=== PATIENT | female | born 1945 | race Caucasian/White ===

== ENCOUNTER 2017-05-14 19:14 | Observation (INO) | payer OTHER ==
--- NOTE | 2017-05-14 19:30 | EDPHY ---
H & P Stated Complaint: abd pain HPI/ROS: CHIEF COMPLAINT: Abdominal pain HISTORY OF PRESENT ILLNESS: The patient is a 71-year-old female presenting with diffuse abdominal pain that started 2 days ago. The patient was on a 10 day vegetable juice fast. She stopped this on and has since had various things to eat like potato chips, ice cream, and weiner. She describes a pressure sensation in her mid-abdomen. The pain remains constant. She was able to have a bowel movement, denies constipation or diarrhea. She denies dysuria or fever. 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 REVIEW OF SYSTEMS: A ten point review of systems was performed and is negative with the exception of the items mentioned in the HPI. Past medical history: Denies. Past surgical history: Appendectomy, [place] teeth. Family history: Noncontributory. Social history: Nonsmoker. No alcohol. General Appearance: Alert. Vital signs reviewed. Blood pressure 173/62. Eyes: Pupils equal and round, no conjunctival injection, no discharge. Anicteric. ENT, Mouth: Mucous membranes are moist, no oropharyngeal erythema or edema. Neck: No lymphadenopathy, supple. Respiratory: Lungs are clear to auscultation; no wheezes, rales, or rhonchi. Cardiovascular: Regular rate and rhythm; no murmur, rub, or gallop. Gastrointestinal: Abdomen is soft, RUQ tenderness, no masses or organomegaly, bowel sounds present, but diminished. Skin: Warm and dry, no rashes on exposed skin, normal color. Back: Nontender to palpation over the thoracolumbar spine. No CVAT. Extremities: No lower extremity edema, no calf tenderness or swelling. Neurological: Alert and oriented. Moving all four extremities easily and equally. Psychiatric: Normal affect. Source: Patient - Personal History Current Tetanus/Diphtheria Vaccine: Yes Current Tetanus Diphtheria and Acellular Pertussis (TDAP): Yes - Medical/Surgical History Hx Asthma: No Hx Chronic Respiratory Disease: No Hx Diabetes: No Hx Cardiac Disease: No Hx Renal Disease: No Hx Cirrhosis: No Hx Alcoholism: No Hx HIV/AIDS: No Hx Splenectomy or Spleen Trauma: No Other PMH: Appendectomy, wisdom teeth - Social History Smoking Status: Never smoked Constitutional: Initial Vital Signs Temperature (C) 36.7 C 05/14/17 19:17 Heart Rate 74 05/14/17 19:17 Respiratory Rate 16 05/14/17 19:17 Blood Pressure 173/62 H 05/14/17 19:17 O2 Sat (%) 97 05/14/17 19:17 O2 Delivery Mode Room Air O2 (L/minute) 2 Allergies/Adverse Reactions: No Known Allergies Allergy (Unverified 05/14/17 19:17) Home Medications: Medication Instructions Recorded Herbals/Supplements -Info Only 1 ea PO DAILY 05/15/17 oxyCODONE/APAP 5/325 [Percocet 1 - 2 tab PO Q4HRS PRN #20 tab 05/15/17 5/325 (*)] Medical Decision Making - Diagnostics Imaging: Discussed imaging studies w/ clerk general Radiologist ED Course/Re-evaluation: The patient presents with diffuse abdominal pain that she describes as a pressure. This has been constant for the past 2 days. On examination the patient has right upper abdominal tenderness and diminished bowel sounds. She is afebrile. I ordered a urinalysis and lab work including liver enzymes, lipase, and BMP. An IV was established, the patient received IV Fentanyl and Zofran for pain and nausea. The patient has an elevated WBC 14. ALT 62. Laboratories otherwise normal. Urinalysis is negative for infection. I ordered abdominal ultrasound. Abdominal US reveals large calculus lodged at the gallbladder neck, associated with tumefactive sludge and gallbladder wall thickening, suggestive of chronic gallbladder obstruction and cholecystitis. Please see radiology report. Abdominal exam remains unchanged, with right upper quadrant tenderness, no guarding. She has been hypertensive in the emergency department. This will be followed during her admission. 9:25 p.m.: I consulted Dr. Marcos, General Surgery, who will admit the patient and evaluate her in the morning for consideration of cholecystectomy. I discussed findings with the patient. She agrees with the plan for admission. Differential Diagnosis: I considered a differential diagnosis that includes but is not limited to acute or chronic cholecystitis, pancreatitis, gastritis, pyelonephritis, urinary tract infection, bowel obstruction. - Data Points Laboratory Results: Laboratory Results 05/14/17 19:40 05/14/17 19:40 Medications Given: Discontinued Medications Bupivacaine HCl (Sensorcaine 0.5% Vial) Confirm Administered Dose 30 ml .ROUTE .STK-MED ONE Stop: 05/15/17 08:14 Last Admin: 05/15/17 09:04 Dose: 30 ml Fentanyl (Sublimaze) 50 mcg IVP EDNOW ONE Stop: 05/14/17 19:51 Last Admin: 05/14/17 19:59 Dose: 50 mcg Fentanyl (Sublimaze) 25 - 100 mcg IVP Q5M PRN PRN Reason: PACU, IMMEDIATE Pain control Stop: 05/15/17 10:01 Last Admin: 05/15/17 10:48 Dose: 25 mcg Hydromorphone HCl (Dilaudid) 1 mg IVP EDNOW ONE Stop: 05/14/17 21:03 Last Admin: 05/14/17 21:04 Dose: 1 mg Sodium Chloride (Ns) 1,000 mls @ 0 mls/hr IV ONCE ONE; Wide Open PRN Reason: Protocol Stop: 05/14/17 19:47 Last Admin: 05/14/17 19:55 Dose: 1,000 mls Potassium Chloride/Dextrose/Sod Cl (D5w 1/2 Ns W/ 20 Kcl/L) 1,000 mls @ 100 mls /hr IV CONT AI Stop: 11/10/17 21:44 Last Admin: 05/15/17 08:03 Dose: 1,000 mls Cefazolin Sodium/Dextrose (Ancef 2 Gm (Premix)) 100 mls @ 200 mls/hr IV ONCALL ONE PRN Reason: Protocol Stop: 05/15/17 08:25 Last Admin: 05/15/17 08:40 Dose: 100 mls Morphine Sulfate (Morphine) 2 mg IVP Q1HR PRN PRN Reason: Pain, Severe Unable to Take PO Stop: 05/24/17 21:34 Last Admin: 05/15/17 11:11 Dose: 2 mg Ondansetron HCl (Zofran) 4 mg IVP EDNOW ONE Stop: 05/14/17 19:54 Last Admin: 05/14/17 20:00 Dose: 4 mg Ondansetron HCl (Zofran) 4 mg IVP Q4HRS PRN PRN Reason: Nausea/Vomiting, Can't Take PO Stop: 11/10/17 21:34 Last Admin: 05/15/17 01:56 Dose: 4 mg Oxycodone/Acetaminophen (Percocet 5/325) 1 - 2 tab PO Q4HRS PRN PRN Reason: Pain, Severe Able to Take PO Stop: 05/25/17 09:52 Last Admin: 05/15/17 13:48 Dose: 1 tab Departure - Departure Disposition: [facility] Inpatient Acute Clinical Impression: Gallstones with obstruction of gallbladder Qualifiers: Cholecystitis presence: with cholecystitis Cholecystitis acuity: chronic Qualified Code(s): K80.11 - 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 I, Dr. Delmi Chatman, personally performed the history, physical exam, and medical decision- making; and confirmed the accuracy of the information in the transcribed note.
[2017-05-14] MEDS ORDERED: NS 1,000 ML IV ONE (19:46)
[2017-05-14 19:50] LABS: % IMMATURE GRANULYOCYTES 0.6 % (0.0-1.1); ABSOLUTE IMMATURE GRANULOCYTES 0.08 10^3/uL (0.00-0.10); ADD DIFF? NO; ADD MORPH? NO; ADD SCAN? NO; ATYPICAL LYMPHOCYTE FLAG 0 (0-99); FRAGMENT RBC FLAG 0 (0-99); HEMATOCRIT 45.4 % (38.0-47.0); HEMOGLOBIN 15.6 g/dL (12.6-16.3); LEFT SHIFT FLG 0 (0-99); LIPEMIA HEMOLYSIS FLAG 90 (0-99); MEAN CELL HEMOGLOBIN 29.3 pg (27.9-34.1); MEAN CELL HEMOGLOBIN CONCENTR. 34.4 g/dL (32.4-36.7); MEAN CELL VOLUME 85.2 fL (81.5-99.8); MEAN PLATELET VOLUME 9.5 fL (8.7-11.7); PLATELET CLUMPS FLAG 0 (0-99); PLATELET COUNT 378 10^3/uL (150-400); RED BLOOD CELL COUNT 5.33 10^6/uL (4.18-5.33); RED CELL DISTRIBUTION WIDTH 12.4 % (11.5-15.2)
[2017-05-14] MEDS ORDERED: fentaNYL 100 MCG/2 ML INJ IVP ONE (19:50)
[2017-05-14 19:52] LABS: COLOR YELLOW; LEUKOCYTE ESTERASE,URINE NEGATIVE (NEGATIVE); NITRITE,URINE NEGATIVE (NEGATIVE)
[2017-05-14 19:53] LABS: MUCUS TRACE /lpf (NONE-1+)
[2017-05-14] MEDS ORDERED: ONDANSETRON 4 MG/2 ML VIAL IVP ONE (19:53)
[2017-05-14 19:58] LABS: ALANINE AMINOTRANSFERASE 62 IU/L (9-52); ALBUMIN 4.2 g/dL (3.5-5.0); ALKALINE PHOSPHATASE 120 IU/L (38-126); ANION GAP 14 mEq/L (8-16); ASPARTATE AMINOTRANSFERASE 41 IU/L (14-46); BILIRUBIN,TOTAL 1.2 mg/dL (0.1-1.4); BILIRUBIN-CONJUGATED 0.3 mg/dL (0.0-0.5); BILIRUBIN-UNCONJUGATED 0.9 mg/dL (0.0-1.1); CALCIUM 9.7 mg/dL (8.5-10.4); CARBON DIOXIDE 20 mEq/l (22-31); CHLORIDE 97 mEq/L (97-110); CREATININE 0.8 mg/dL (0.6-1.0); GLOMERULAR FILTRATION RATE > 60; GLUCOSE 115 mg/dL (70-100); POTASSIUM 3.7 mEq/L (3.5-5.2); SODIUM 131 mEq/L (134-144); TOTAL PROTEIN 7.2 g/dL (6.3-8.2)
[2017-05-14] MEDS ORDERED: HYDROmorphONE/DILAUDID 1 MG/ML INJ ONE (21:01)
[2017-05-14] MEDS ORDERED: HYDROmorphONE/DILAUDID 1 MG/ML INJ IVP ONE (21:02)
[2017-05-14] MEDS ORDERED: ONDANSETRON 4 MG/2 ML VIAL IVP PRN (21:35)
[2017-05-14] MEDS ORDERED: ACETAMINOPHEN 325 MG TAB PO PRN (21:36)
[2017-05-14] MEDS: D5W 1/2 NS W/ 20 KCl/L 1,000 ML IV SCH (23:01)
[2017-05-15 05:25] LABS: % IMMATURE GRANULYOCYTES 0.6 % (0.0-1.1); ABSOLUTE IMMATURE GRANULOCYTES 0.07 10^3/uL (0.00-0.10); ADD DIFF? NO; ADD MORPH? NO; ADD SCAN? NO; ATYPICAL LYMPHOCYTE FLAG 0 (0-99); FRAGMENT RBC FLAG 0 (0-99); HEMATOCRIT 44.1 % (38.0-47.0); LEFT SHIFT FLG 0 (0-99); LIPEMIA HEMOLYSIS FLAG 90 (0-99); MEAN CELL HEMOGLOBIN 29.5 pg (27.9-34.1); MEAN CELL VOLUME 86.8 fL (81.5-99.8); MEAN PLATELET VOLUME 9.7 fL (8.7-11.7); PLATELET CLUMPS FLAG 0 (0-99); PLATELET COUNT 301 10^3/uL (150-400); RED BLOOD CELL COUNT 5.08 10^6/uL (4.18-5.33); RED CELL DISTRIBUTION WIDTH 12.5 % (11.5-15.2)
[2017-05-15 05:51] LABS: CARBON DIOXIDE 24 mEq/l (22-31); CHLORIDE 97 mEq/L (97-110); POTASSIUM 4.4 mEq/L (3.5-5.2); SODIUM 131 mEq/L (134-144)
[2017-05-15 05:52] LABS: ALANINE AMINOTRANSFERASE 139 IU/L (9-52); ALBUMIN 3.4 g/dL (3.5-5.0); ALKALINE PHOSPHATASE 129 IU/L (38-126); ANION GAP 10 mEq/L (8-16); ASPARTATE AMINOTRANSFERASE 230 IU/L (14-46); BILIRUBIN,TOTAL 1.4 mg/dL (0.1-1.4); CALCIUM 8.9 mg/dL (8.5-10.4); CREATININE 0.6 mg/dL (0.6-1.0); GLOMERULAR FILTRATION RATE > 60; GLUCOSE 149 mg/dL (70-100); TOTAL PROTEIN 6.3 g/dL (6.3-8.2)
[2017-05-15] MEDS ORDERED: ceFAZolin 2 GM/DEXTROSE 100 ML IV ONE (07:56)
[2017-05-15] MEDS: D5W 1/2 NS W/ 20 KCl/L 1,000 ML IV SCH (08:03)
[2017-05-15] MEDS ORDERED: BUPIVACAINE 0.5% 30 ML SDV ONE (08:13)
[2017-05-15] MEDS ORDERED: CEFAZOLIN 2 GM/DEXTROSE/100 ML BAG IV ONE (08:19)
--- NOTE | 2017-05-15 08:20 | GHP ---
[f rep st] HISTORY AND PHYSICAL DATE OF ADMISSION: 05/14/2017 CHIEF COMPLAINT: Cholelithiasis. HISTORY OF PRESENT ILLNESS: The patient is a 71-year-old woman who was on a juicing cleanse. She st opped this 10 days into the fast and ate things such as potato chips and ice creams and weiner. The p ain escalated. The pain started 2 days ago. She describes it as a pressure and sharp pain her right upper quadrant. The pain is constant. She has not seen a primary care physician, over 4 years. Tina villareal is not having nausea or emesis. She is not having changes in her bowel movement. PAST MEDICAL HISTORY: None. PAST SURGICAL HISTORY: [place] teeth extraction, appendectomy. FAMILY HISTORY: Noncontributory. SOCIAL HISTORY: She does not use tobacco or alcohol products. 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 PHYSICAL EXAMINATION: GENERAL: Pleasant, well-nourished, well-groomed woman. HEENT: Normocephalic . No gross hearing deficits. Mucous membranes moist. Pupils equal and round. No scleral icterus. LUNGS: Clear to auscultation bilaterally. No increased work of breathing. CARDIAC: Regular rate. No peripheral edema. ABDOMEN: She has well-healed laparoscopic incisions consistent with her prev ious appendectomy. ABDOMEN: Soft. She is tender in the right quadrant below the costal margin. SK IN: Warm and dry. No obvious rashes. MUSCULOSKELETAL: Normal nails. Moves all extremities easily . PSYCH: Normal mood and affect. NEURO: Grossly intact. LAB RESULTS: I personally reviewed the results of her ultrasound that shows a large gallstone and so me gallbladder wall thickening as well as her laboratory work. Her white count is down today. Her L FTs are up. IMPRESSION AND PLAN: A 71-year-old woman with cholelithiasis. I will take her to the operating room for a laparoscopic cholecystectomy. The risks and benefits, including, but not limited to, stroke, heart attack, , blood clots, infection, bleeding, damage to common bile duct, need for additiona l procedures, were discussed. She will receive Ancef collection team lead to the operating room. She had her que stions answered to her satisfaction and signed the informed consent. /[id number]/MODL
[2017-05-15] MEDS ORDERED: PROPOFOL 200 MG/20 ML VIAL ONE (08:38)
[2017-05-15] MEDS ORDERED: fentaNYL 100 MCG/2 ML INJ ONE ×2 (08:38→10:46)
[2017-05-15] MEDS ORDERED: LIDOCAINE 2% 5 ML SDV ONE (08:38)
[2017-05-15] MEDS ORDERED: PHENYLEPHRINE HCL 100 MCG/ML SYR ONE (08:47)
[2017-05-15] MEDS ORDERED: epHEDrine SULFATE 10 MG/ML SYR ONE (08:50)
[2017-05-15] MEDS ORDERED: fentaNYL 100 MCG/2 ML INJ IVP PRN (09:01)
[2017-05-15] MEDS ORDERED: NALOXONE HCL 0.4 MG/ML INJ IVP PRN (09:01)
[2017-05-15] MEDS ORDERED: HYDROmorphONE/DILAUDID 1 MG/ML INJ IVP PRN (09:01)
[2017-05-15] MEDS ORDERED: ALBUTEROL 3 ML DEYVIAL IH PRN (09:01)
[2017-05-15] MEDS ORDERED: ONDANSETRON 4 MG/2 ML VIAL IVP PRN (09:01)
--- NOTE | 2017-05-15 09:02 | PDANEPAE ---
ANE History of Present Illness Leanna Nagel MADELINE Past Medical History - Pulmonary History Hx Oxygen in Use at Home: No Hx Sleep Apnea: No Sleep Apnea Screening Result - Last Documented: Negative - Endocrine History Hx Diabetes: No - Chronic Pain History Chronic Pain: No ANE Review of Systems Review of Systems: ANE Patient History - Allergies Allergies/Adverse Reactions: No Known Allergies Allergy (Unverified 05/14/17 19:17) - Home Medications Home Medications: Herbals/Supplements -Info Only 1 ea PO DAILY 05/15/17 [Last Taken Unknown] - NPO status NPO Since - Liquids (Date): 05/14/17 NPO Since - Liquids (Time): 00:00 NPO Since - Solids (Date): 05/14/17 NPO Since - Solids (Time): 22:00 - Smoking Hx Smoking Status: Never smoked ANE Labs/Vital Signs - Labs Result Diagrams: 05/15/17 04:45 05/15/17 04:45 - Vital Signs Blood Pressure: 150/72 Heart Rate: 64 Respiratory Rate: 16 O2 Sat (%): 97 Height: 162.56 cm Weight: 61.235 kg ANE Physical Exam - Airway Neck exam: FROM Mallampati Score: Class 2 Mouth exam: normal dental/mouth exam - Pulmonary Pulmonary: clear to auscultation - Cardiovascular Cardiovascular: regular rate and rhythym - ASA Status ASA Status: I, E ANE Anesthesia Plan Anesthesia Plan: general endotracheal anesthesia
[2017-05-15] MEDS ORDERED: ONDANSETRON 4 MG/2 ML VIAL ONE (09:39)
[2017-05-15] MEDS ORDERED: DEXAMETHASONE 4 MG/ML VIAL ONE (09:39)
[2017-05-15] MEDS ORDERED: RANITIDINE 50 MG/2 ML VIAL ONE (09:39)
[2017-05-15] MEDS ORDERED: SUGAMMADEX SODIUM 200 MG/2 ML VIAL IVP ONE (09:44)
[2017-05-15] MEDS ORDERED: OXYCODONE/APAP 5/325 TAB PO PRN (09:53)
--- NOTE | 2017-05-15 09:55 | POSTOPPROG ---
Post Op Note Date of Operation: 05/15/17 Surgeon: Zahraa Marcos Anesthesiologist: damaso Anesthesia: GET(General Endotracheal) Pre-op Diagnosis: acute calculous harvey Post-op Diagnosis: same Indication: 71 yo with acute calculous harvey Procedure: lap harvey Findings: enlarged gb with large stone Inf/Abcess present in the surg proc area at time of surgery?: No EBL: Minimal Specimen(s): gb
--- NOTE | 2017-05-15 10:06 | POSTANESTH ---
Post Anesthetic Evaluation Cardiovascular Status: Normal, Stable Respiratory Status: Normal, Stable Level of Consciousness/Mental Status: Can Participate in Eval, Mildly Sleepy, Arousable Pain Control: Adequate, Prn Tx Ordered Nausea/Vomiting Control: Adequate, Prn Tx Ordered Complications Possibly Related to Anesthesia: None Noted
--- NOTE | 2017-05-15 10:20 | GOP ---
[f rep st] OPERATIVE REPORT DATE OF OPERATION: 05/15/2017 SURGEON: Zahraa Marcos MD ANESTHESIA: Krystian Schulz, DO/General. PREOPERATIVE DIAGNOSIS: Acute calculous cholecystitis. POSTOPERATIVE DIAGNOSIS: Acute calculous cholecystitis. PROCEDURE PERFORMED: Laparoscopic cholecystectomy. FINDINGS: Very enlarged, tense gallbladder. SPECIMENS: Gallbladder. ESTIMATED BLOOD LOSS: 15 cc. INDICATIONS: The patient is a 71-year-old woman, who developed abdominal pain. Her ultrasound showe d an enlarged gallbladder with a large stone lodged at the neck of the gallbladder. DESCRIPTION OF PROCEDURE: The patient was brought into the operating room, placed supine on the tabl e, and general anesthesia was administered. Her abdomen was prepped and draped in the usual sterile fashion. I infiltrated all sites with 0.5% Marcaine prior to making incisions. I elevated the umbil icus, I inserted the Veress needle. It passed the hanging drop test. Her abdomen insufflated easily to a pressure of 15 mmHg. Under direct vision, I placed a 10 mm subxiphoid trocar and two 5 mm troc ars along the right costal margin. I was unable to lift the gallbladder cephalad because it was so t ense. I then inserted a needle to aspirate the bile, it was extremely thickened and very difficult t o aspirate. Once the gallbladder was able to be lifted cephalad, I then could retract it laterally t o expose the triangle of Calot. Using suction dissection and blunt dissection, I skeletonized the cy stic artery and cystic duct so that they were the only 2 structures directly entering the gallbladder . They were singly clipped toward the gallbladder, doubly clipped distally, and transected with scis sors. The gallbladder was removed from the gallbladder fossa with electrocautery. I placed an EndoC atch bag and retrieved via the subxiphoid trocar. This incision had to be enlarged to accommodate th e large stone and gallbladder. I then inspected her abdomen. Suction irrigation was performed. The clips were in satisfactory position. Hemostasis was achieved on the liver bed with electrocautery f ollowed by Simon. The ports were removed under direct vision, the abdomen allowed to desufflate. T he fascia at the 10 mm trocar site was closed with 0 Vicryl, skin closed with 4-0 Monocryl. Dermabon d applied. She was awakened in the operating room, extubated, transferred to PACU in stable conditio nDarion Mcgrath #: [id number]/MODL
--- NOTE | 2017-05-15 16:15 | SOAPPROG ---
SOAP Progress Note Assessment/Plan: Assessment: POD # 0 s/p lap harvey. doing very well. dc home Plan: 05/15/17 16:15 Objective: Vital Signs Temp Pulse Resp BP Pulse Ox 36.4 C 84 18 100/55 L 93 05/15/17 11:25 05/15/17 13:04 05/15/17 13:04 05/15/17 13:04 05/15/17 13:04 Laboratory Results 05/15/17 04:45 05/15/17 04:45 05/14/17 05/15/17 05/16/17 05:59 05:59 05:59 Intake Total 1800 Output Total 350 15 Balance 1450 -15 ICD10 Worksheet Patient Problems: Problems Problem Status Onset Gallstones with obstruction of gallbladder Acute
[2017-05-15 16:26] VITALS: BP 117/56; PULSE 60; RESP 17; TEMP 97.8; O2SAT 96
--- NOTE | 2017-05-15 16:44 | ASDISCHSUM ---
Discharge Information Plan Status:Home with No Needs Medically Cleared to Leave:05/15/2017 Discharge Date:05/15/2017 CM D/C Disposition:Home, Routine, Self-Care ADT D/C Disposition:Home, Routine, Self-Care Projected Discharge Date:05/15/2017 12:00 AM Transportation at D/C: Discharge Delay Reason: Follow-Up Date:05/15/2017 12:00 AM Discharge Slot: Final Diagnosis: Placement Information Patient Contact Information Contact Name:SUAD Relationship: Address:[address] City:[place] Alternate Phone: State/Zip Code:[place] [address] Email: Financial Information Financial Class:MC Primary Plan Desc:MEDICARE OUTPATIENT Primary Plan Number:[id number] Secondary Plan Desc:[employer] POS HMO SIG ADM Secondary Plan Number:[id number] Assessment Information Intervention Information
== END 2017-05-15 16:35 | disposition home or self-care (01) ==
LOC: F1N 22:00
PROVIDERS: ADMIT Surgery; ATTEND Surgery
PROC: 0FT44ZZ Resection of Gallbladder, Percutaneous Endoscopic Approach (ICD-10-PCS; principal; 2017-05-14)
DX: K80.01 Calculus of gallbladder with acute cholecystitis with obstruction (principal)
CPT/HCPCS: 47562; 76705; 88304; 88313; G0378; J0690; J1100; J1170; J2370; J2405; J2704; J2780; J3010